=== PATIENT | male | born 1985 | race Two or more races ===

== ENCOUNTER 2017-10-17 23:32 | Emergency (ER) | payer SELFPAY ==
[~2017-10-17] VITALS: Ht 167.6 cm; Wt 72.6 kg
[2017-10-17 23:42] VITALS: BP 115/72
[2017-10-18] MEDS: FAMOTIDINE 20 MG TABLET. PO ONE (00:13)
[2017-10-18] MEDS: predniSONE 20 MG TABLET PO ONE (00:14)
[2017-10-18] MEDS ORDERED: diphenhydrAMINE HCL 25 MG CAPSULE PO ONE (00:15)
[2017-10-18] MEDS ORDERED: PRED-220 PO (00:18)
[2017-10-18] MEDS ORDERED: DIPH25CA58 PO (00:18)
[2017-10-18] MEDS ORDERED: FAMO20TA5 PO (00:18)
--- NOTE | 2017-10-18 00:19 | PHYS DOC ---
Adult General Chief Complaint Chief Complaint: SKIN PROBLEM HPI HPI Patient is a 32 year old male who presents with poison kathryn rash that began yesterday after working on his fence. Denies any fever. Review of Systems Review of Systems Constitutional: Denies fever or chills [] Musculoskeletal: Denies back pain or joint pain [] Integument: Reports poison kathryn rash Neurologic: Denies headache, focal weakness or sensory changes [] All other systems were reviewed and found to be within normal limits, except as documented in this note. Current Medications Current Medications Current Medications Medications (Trade) Dose Ordered Sig/Ozzie Start Time Stop Time Status Last Admin Dose Admin Diphenhydramine HCl (Benadryl) 25 mg 1X ONCE 10/18/17 00:15 10/18/17 00:15 DC Famotidine (Pepcid) 20 mg 1X ONCE 10/18/17 00:30 10/18/17 00:31 Prednisone (Prednisone) 50 mg 1X ONCE 10/18/17 00:30 10/18/17 00:31 Allergies Allergies Allergies Coded Allergies Type Severity Reaction Last Updated Verified No Known Drug Allergies 10/17/17 No Physical Exam Physical Exam Constitutional: Well developed, well nourished, no acute distress, non-toxic appearance. [] HENT: Normocephalic, atraumatic, bilateral external ears normal, oropharynx moist, no oral exudates, nose normal. [] Skin: Warm, dry, small amount of erythematous linear and papular rash on the right ear, right cheek and bilateral upper extremities. Back: No tenderness, no CVA tenderness. [] Extremities: No tenderness, no cyanosis, no clubbing, ROM intact, no edema. [] Neurologic: Alert and oriented X 3, normal motor function, normal sensory function, no focal deficits noted. [] Psychologic: Affect normal, judgement normal, mood normal. [] EKG EKG [] Radiology/Procedures Radiology/Procedures [] Course & Med Decision Making Course & Med Decision Making Pertinent Labs and Imaging studies reviewed. (See chart for details) Patient has contact dermatitis rash. We discharged with tapered dose of prednisone,Benadryl and Pepcid. Follow-up with PCP or provided development executive in 1-2 weeks as needed. Dragon Disclaimer Dragon Disclaimer This electronic medical record was generated, in whole or in part, using a voice recognition dictation system. Departure Departure Impression: Primary Impression: Contact dermatitis due to poison kathryn Disposition: HOME, SELF-CARE Condition: STABLE Referrals: BIAN[facility] INFANTE MD follow up in 1-2 weeks as needed Patient Instructions: Poison Kathryn, Bbur-yr-Ogki Additional Instructions: You have poison kathryn rash. Take the prescribed medications as ordered. Follow-up with your own doctor the provided doctor in 1-2 weeks. Scripts Diphenhydramine Hcl (BENADRYL) 25 Mg Capsule 1 CAP PO Q6HRS, #30 CAP 1 Refill Prov: ALIDA SONI APRN 10/18/17 Famotidine (FAMOTIDINE) 20 Mg Tablet 20 MG PO DAILY, #14 TAB Prov: ALIDA SONI APRN 10/18/17 Prednisone (PREDNISONE ) 10 Mg Tablet 10 MG PO UD for PREDNISONE TAPER, #39 TAB 0 Refills Take 3 tablets by mouth twice a day for 3 days, then take 2 tablets by mouth twice a day for 3 days, then take 1 tablet by mouth twice a day for 3 days, then take 1 tablet by mouth daily x 3 days, then stop. Prov: ALIDA SONI APRN 10/18/17 ALIDA SONI APRN Oct 18, 2017 00:19
== END 2017-10-18 01:02 | disposition home or self-care (01) ==
LOC: ER 23:32
DX: L23.7 Allergic contact dermatitis due to plants, except food (principal)
CPT/HCPCS: 99283; J7512